=== PATIENT | female | born 1950 | race Caucasian/White ===

== ENCOUNTER → 2023-08-06 12:37 | Outpatient (REF) | payer MEDICARE, OTHER, SELFPAY ==
[2023-08-06 13:24] LABS: % Basophils 0.8 % (0-2); % Eosinophils 1.6 % (0-6); % Immature Granulocytes 0.2 % (0-0.5); % Lymphocytes 27.5 % (20.5-51.1); % Monocytes 8.5 % (1.7-9.3); % Neutrophils 61.4 % (42.2-75.2); Absolute Basophils 0.1 10^3/uL (0-0.2); Absolute Eosinophils 0.1 10^3/uL (0-0.7); Absolute Lymphocytes 1.7 10^3/uL (1.2-3.4); Absolute Monocytes 0.5 10^3/uL (0.1-0.6); Absolute Neutrophils 3.8 10^3/uL (1.4-6.5); Hematocrit 43.5 % (37.0-47.0); Mean Corp Hgb Conc. 36.8 g/dL (33.0-37.0); Mean Corpuscular Volume 100.5 fL (81.0-99.0); Nucleated Red Blood Cells % 0 %; Platelet Count 192 10^3/uL (130-400); Red Blood Cell Count 4.33 10^6/uL (4.20-5.40); Red Cell Dist. Width 11.1 % (11.5-14.5); White Blood Cell Count 6.3 10^3/uL (4.8-10.8)
[2023-08-06 13:50] LABS: ALT (SGPT) 20 U/L (0-35); AST (SGOT) 32 U/L (14-36); Albumin 3.9 g/dl (3.5-5.0); Alkaline Phosphatase 89 U/L (38-126); Blood Urea Nitrogen 15 mg/dl (7-17); Calcium 9.5 mg/dl (8.4-10.2); Carbon Dioxide 26 mmol/L (22-30); Chloride 104 mmol/L (98-107); Glucose 127 mg/dl (70-99); Iron 210 ug/dl (37-170); Sodium 139 mmol/L (135-145); Total Bilirubin 1.1 mg/dl (0.2-1.3); Total Cholesterol 259 mg/dl (50-199); Total Protein 6.2 g/dl (6.3-8.2); Triglyceride 121 mg/dl (10-149); Very Low Density Lipoprotein 24 mg/dl (0-30); eGFR > 60.00
[2023-08-06 13:59] LABS: HDL Cholesterol 120 mg/dl; LDL Cholesterol, Calculated 115 mg/dl; Percent Saturation 97 % (20-50); Total Iron Binding Capacity 216 ug/dl (265-497)
[2023-08-06 14:20] LABS: TSH Reflex To Free T4 0.41 uIU/ml (0.47-4.68)
[2023-08-06 14:48] LABS: Free T4 1.23 ng/dl (0.78-2.19)
[2023-08-06 19:29] LABS: AFP Male/Tumor Marker 3.91 ng/ml
[2023-08-07 11:06] LABS: Glycohemoglobin (HgbA1c) 5.7 % (4.0-5.6)
[2023-08-08 23:57] LABS: CA 27-29 57.5 U/mL (<=39.0)
== END ==
LOC: REG 12:37
PROVIDERS: ATTENDING PHYSICIAN Internal Medicine Hematology; FAMILY PHYSICIAN Family Medicine; OTHER PHYSICIAN Internal Medicine Hematology & Oncology; REFERRING PHYSICIAN Obstetrics & Gynecology
DX: E83.110 Hereditary hemochromatosis (principal); C50.911 Malignant neoplasm of unspecified site of right female breast; C56.2 Malignant neoplasm of left ovary; C50.411 Malignant neoplasm of upper-outer quadrant of right female breast; Z01.812 Encounter for preprocedural laboratory examination; I10 Essential (primary) hypertension; E78.2 Mixed hyperlipidemia; R73.03 Prediabetes
CPT/HCPCS: 36415; 80053; 80061; 82105; 82728; 83036; 83540; 83550; 84439; 84443; 85025; 86300

== ENCOUNTER 2023-08-21 13:53 | Outpatient (RCR) | payer MEDICARE, OTHER, SELFPAY ==
[2023-08-21 14:03] VITALS: BP 140/70
[2023-08-21 14:20] VITALS: BP 142/71
[2023-08-21 14:35] VITALS: BP 138/84
== END 2023-08-24 09:41 | disposition home or self-care (01) ==
LOC: OID 13:53
PROVIDERS: ATTENDING PHYSICIAN Internal Medicine Hematology & Oncology; FAMILY PHYSICIAN Family Medicine
DX: E83.110 Hereditary hemochromatosis (principal)
CPT/HCPCS: 99195

== ENCOUNTER → 2023-09-29 12:28 | Outpatient (REF) | payer MEDICARE, OTHER, SELFPAY | LOC: RAD 12:28 | PROVIDERS: ATTENDING PHYSICIAN Obstetrics & Gynecology | DX: C56.2 Malignant neoplasm of left ovary (principal) | CPT/HCPCS: 71260; 74177; Q9967 ==

== ENCOUNTER → 2023-10-09 12:59 | Outpatient (REF) | payer MEDICARE, OTHER, SELFPAY ==
[2023-10-09 13:56] LABS: % Basophils 0.6 % (0-2); % Immature Granulocytes 0.2 % (0-0.5); % Lymphocytes 32.2 % (20.5-51.1); % Monocytes 8.8 % (1.7-9.3); % Neutrophils 56.2 % (42.2-75.2); Absolute Eosinophils 0.1 10^3/uL (0-0.7); Absolute Lymphocytes 2.1 10^3/uL (1.2-3.4); Absolute Monocytes 0.6 10^3/uL (0.1-0.6); Absolute Neutrophils 3.7 10^3/uL (1.4-6.5); Hematocrit 46.8 % (37.0-47.0); Hemoglobin 16.4 g/dL (12.0-16.0); Mean Corpuscular Hgb 36.2 pg (27.0-31.0); Mean Corpuscular Volume 103.3 fL (81.0-99.0); Mean Platelet Volume 9.1 fL (7.4-10.4); Nucleated Red Blood Cells % 0 %; Platelet Count 226 10^3/uL (130-400); Red Blood Cell Count 4.53 10^6/uL (4.20-5.40); Red Cell Dist. Width 11.9 % (11.5-14.5); White Blood Cell Count 6.6 10^3/uL (4.8-10.8)
[2023-10-09 14:20] LABS: Iron 263 ug/dl (37-170)
[2023-10-09 14:30] LABS: Percent Saturation 128 % (20-50); Total Iron Binding Capacity 204 ug/dl (265-497)
[2023-10-09 14:57] LABS: Ferritin 88.6 ng/ml (11.1-264.0)
== END ==
LOC: REG 12:59
PROVIDERS: ATTENDING PHYSICIAN Internal Medicine Hematology & Oncology; FAMILY PHYSICIAN Family Medicine
DX: E83.110 Hereditary hemochromatosis (principal); C50.411 Malignant neoplasm of upper-outer quadrant of right female breast
CPT/HCPCS: 36415; 82728; 83540; 83550; 85025

== ENCOUNTER 2023-10-15 13:43 | Outpatient (RCR) | payer MEDICARE, OTHER, SELFPAY ==
[2023-10-15 13:55] VITALS: BP 118/69
[2023-10-15 14:35] VITALS: BP 128/71
== END 2023-10-27 23:59 | disposition home or self-care (01) ==
LOC: OID 13:43
PROVIDERS: ATTENDING PHYSICIAN Internal Medicine Hematology & Oncology; FAMILY PHYSICIAN Family Medicine
DX: E83.110 Hereditary hemochromatosis (principal)
CPT/HCPCS: 99195

== ENCOUNTER → 2024-01-29 13:54 | Outpatient (REF) | payer MEDICARE, OTHER, SELFPAY ==
[2024-01-29 14:45] LABS: % Basophils 0.7 % (0-2); % Eosinophils 3.5 % (0-6); % Immature Granulocytes 0.3 % (0-0.5); % Lymphocytes 29.2 % (20.5-51.1); % Monocytes 10.4 % (1.7-9.3); % Neutrophils 55.9 % (42.2-75.2); Absolute Eosinophils 0.2 10^3/uL (0-0.7); Absolute Lymphocytes 1.7 10^3/uL (1.2-3.4); Absolute Monocytes 0.6 10^3/uL (0.1-0.6); Absolute Neutrophils 3.2 10^3/uL (1.4-6.5); Hematocrit 43.5 % (37.0-47.0); Hemoglobin 15.8 g/dL (12.0-16.0); Mean Corp Hgb Conc. 36.3 g/dL (33.0-37.0); Mean Corpuscular Hgb 36.5 pg (27.0-31.0); Mean Corpuscular Volume 100.5 fL (81.0-99.0); Mean Platelet Volume 9.2 fL (7.4-10.4); Nucleated Red Blood Cells % 0 %; Platelet Count 203 10^3/uL (130-400); Red Blood Cell Count 4.33 10^6/uL (4.20-5.40); Red Cell Dist. Width 11.8 % (11.5-14.5); White Blood Cell Count 5.8 10^3/uL (4.8-10.8)
[2024-01-29 15:23] LABS: Iron 143 ug/dl (37-170)
[2024-01-29 15:32] LABS: Percent Saturation 67 % (20-50); Total Iron Binding Capacity 212 ug/dl (265-497)
[2024-01-29 15:58] LABS: AFP Male/Tumor Marker 3.45 ng/ml; Ferritin 46.2 ng/ml (11.1-264.0)
== END ==
LOC: REG 13:54
PROVIDERS: ATTENDING PHYSICIAN Internal Medicine Hematology & Oncology; FAMILY PHYSICIAN Family Medicine
DX: E83.110 Hereditary hemochromatosis (principal); C50.411 Malignant neoplasm of upper-outer quadrant of right female breast
CPT/HCPCS: 36415; 82105; 82728; 83540; 83550; 85025

== ENCOUNTER → 2024-08-04 12:47 | Outpatient (REF) | payer MEDICARE, OTHER, SELFPAY ==
[2024-08-04 14:24] LABS: ALT (SGPT) 25 U/L (0-35); AST (SGOT) 31 U/L (14-36); Albumin 4.4 g/dl (3.5-5.0); Alkaline Phosphatase 98 U/L (38-126); Blood Urea Nitrogen 16 mg/dl (7-17); Calcium 9.3 mg/dl (8.4-10.2); Carbon Dioxide 30 mmol/L (22-30); Chloride 102 mmol/L (98-107); Glucose 90 mg/dl (70-99); Potassium 4.2 mmol/L (3.5-5.1); Sodium 140 mmol/L (135-145); Total Bilirubin 0.9 mg/dl (0.2-1.3); Total Protein 6.6 g/dl (6.3-8.2); eGFR > 60.00
[2024-08-04 14:33] LABS: % Basophils 0.6 % (0-2); % Eosinophils 2.5 % (0-6); % Immature Granulocytes 0.3 % (0-0.5); % Lymphocytes 23.6 % (20.5-51.1); % Monocytes 8.7 % (1.7-9.3); % Neutrophils 64.3 % (42.2-75.2); Absolute Eosinophils 0.2 10^3/uL (0-0.7); Absolute Lymphocytes 1.6 10^3/uL (1.2-3.4); Absolute Monocytes 0.6 10^3/uL (0.1-0.6); Absolute Neutrophils 4.3 10^3/uL (1.4-6.5); Hematocrit 47.3 % (37.0-47.0); Mean Corpuscular Hgb 36.5 pg (27.0-31.0); Mean Corpuscular Volume 101.5 fL (81.0-99.0); Mean Platelet Volume 9.2 fL (7.4-10.4); Nucleated Red Blood Cells % 0 %; Platelet Count 280 10^3/uL (130-400); Red Blood Cell Count 4.66 10^6/uL (4.20-5.40); Red Cell Dist. Width 11.4 % (11.5-14.5); White Blood Cell Count 6.7 10^3/uL (4.8-10.8)
[2024-08-04 14:35] LABS: Mean Corp Hgb Conc. 35.9 g/dL (33.0-37.0)
[2024-08-04 18:55] LABS: CA 125 7.6 U/mL (0-35)
== END ==
LOC: REG 12:47
PROVIDERS: ATTENDING PHYSICIAN Obstetrics & Gynecology Gynecologic Oncology; FAMILY PHYSICIAN Family Medicine
DX: E83.110 Hereditary hemochromatosis (principal); C50.411 Malignant neoplasm of upper-outer quadrant of right female breast; C56.2 Malignant neoplasm of left ovary; C22.1 Intrahepatic bile duct carcinoma
CPT/HCPCS: 36415; 80053; 85025; 86301; 86304

== ENCOUNTER 2024-08-17 13:49 | Outpatient (RCR) | payer MEDICARE, OTHER, SELFPAY ==
[2024-08-17 14:09] VITALS: BP 122/70
[2024-08-17 14:41] VITALS: BP 148/89
[2024-08-17 14:55] VITALS: BP 144/79
== END 2024-08-18 08:34 | disposition home or self-care (01) ==
LOC: OID 13:49
PROVIDERS: ATTENDING PHYSICIAN Internal Medicine Hematology & Oncology
DX: E83.110 Hereditary hemochromatosis (principal); C56.2 Malignant neoplasm of left ovary; Z85.3 Personal history of malignant neoplasm of breast
CPT/HCPCS: 99195

== ENCOUNTER → 2024-09-12 14:25 | Outpatient (REF) | payer MEDICARE, OTHER, SELFPAY ==
[2024-09-12 15:34] LABS: % Basophils 0.6 % (0-2); % Eosinophils 2.4 % (0-6); % Immature Granulocytes 0.3 % (0-0.5); % Lymphocytes 34.6 % (20.5-51.1); % Monocytes 9.4 % (1.7-9.3); % Neutrophils 52.7 % (42.2-75.2); Absolute Eosinophils 0.2 10^3/uL (0-0.7); Absolute Lymphocytes 2.1 10^3/uL (1.2-3.4); Absolute Monocytes 0.6 10^3/uL (0.1-0.6); Absolute Neutrophils 3.2 10^3/uL (1.4-6.5); Hematocrit 44.6 % (37.0-47.0); Hemoglobin 15.9 g/dL (12.0-16.0); Mean Corp Hgb Conc. 35.7 g/dL (33.0-37.0); Mean Corpuscular Hgb 36.6 pg (27.0-31.0); Mean Corpuscular Volume 102.5 fL (81.0-99.0); Mean Platelet Volume 9.4 fL (7.4-10.4); Nucleated Red Blood Cells % 0 %; Platelet Count 205 10^3/uL (130-400); Red Blood Cell Count 4.35 10^6/uL (4.20-5.40); Red Cell Dist. Width 11.9 % (11.5-14.5); White Blood Cell Count 6.2 10^3/uL (4.8-10.8)
[2024-09-12 15:35] LABS: Iron 202 ug/dl (37-170)
[2024-09-12 15:45] LABS: Percent Saturation 90 % (20-50); Total Iron Binding Capacity 223 ug/dl (265-497)
[2024-09-12 16:12] LABS: Ferritin 61.1 ng/ml (11.1-264.0)
== END ==
LOC: REG 14:25
PROVIDERS: ATTENDING PHYSICIAN Internal Medicine Hematology & Oncology
DX: E83.110 Hereditary hemochromatosis (principal); C50.411 Malignant neoplasm of upper-outer quadrant of right female breast; C56.2 Malignant neoplasm of left ovary
CPT/HCPCS: 36415; 82728; 83540; 83550; 85025

== ENCOUNTER → 2024-09-19 13:32 | Outpatient (REF) | payer MEDICARE, OTHER, SELFPAY | LOC: RAD 13:32 | PROVIDERS: ATTENDING PHYSICIAN Obstetrics & Gynecology Gynecologic Oncology; FAMILY PHYSICIAN Family Medicine | DX: C56.2 Malignant neoplasm of left ovary (principal) | CPT/HCPCS: 71260; 74177; Q9967 ==

== ENCOUNTER 2024-09-22 13:45 | Outpatient (RCR) | payer MEDICARE, OTHER, SELFPAY ==
[2024-09-22 13:50] VITALS: BP 161/88
[2024-09-22 14:10] VITALS: BP 122/73
[2024-09-22 14:15] VITALS: BP 100/76
== END 2024-09-26 23:59 | disposition home or self-care (01) ==
LOC: OID 13:45
PROVIDERS: ATTENDING PHYSICIAN Internal Medicine Hematology & Oncology; FAMILY PHYSICIAN Family Medicine
DX: E83.110 Hereditary hemochromatosis (principal); C50.411 Malignant neoplasm of upper-outer quadrant of right female breast; C56.2 Malignant neoplasm of left ovary
CPT/HCPCS: 99195

== ENCOUNTER → 2025-01-30 13:04 | Outpatient (REF) | payer MEDICARE, OTHER, SELFPAY ==
[2025-01-30 13:37] LABS: Hematocrit 43.8 % (37.0-47.0); Hemoglobin 15.4 g/dL (12.0-16.0); Mean Corp Hgb Conc. 35.2 g/dL (33.0-37.0); Mean Corpuscular Volume 102.8 fL (81.0-99.0); Nucleated Red Blood Cells % 0 %; Platelet Count 197 10^3/uL (130-400); Red Cell Dist. Width 12.1 % (11.5-14.5)
[2025-01-30 14:01] LABS: ALT (SGPT) 22 U/L (0-35); AST (SGOT) 28 U/L (14-36); Albumin 4.2 g/dl (3.5-5.0); Alkaline Phosphatase 81 U/L (38-126); Blood Urea Nitrogen 17 mg/dl (7-17); Calcium 9.5 mg/dl (8.4-10.2); Carbon Dioxide 28 mmol/L (22-30); Chloride 107 mmol/L (98-107); Glucose 108 mg/dl (70-99); Iron 159 ug/dl (37-170); Potassium 4.0 mmol/L (3.5-5.1); Sodium 140 mmol/L (135-145); Total Protein 6.4 g/dl (6.3-8.2); eGFR > 60.00
[2025-01-30 14:11] LABS: Total Iron Binding Capacity 226 ug/dl (265-497)
[2025-01-30 14:39] LABS: Ferritin 48.6 ng/ml (11.1-264.0)
[2025-01-30 19:09] LABS: CA 125 < 5.5 U/mL (0-35)
[2025-01-30 19:13] LABS: AFP Male/Tumor Marker 4.22 ng/ml
== END ==
LOC: REG 13:04
PROVIDERS: ATTENDING PHYSICIAN Internal Medicine Hematology & Oncology; FAMILY PHYSICIAN Family Medicine
DX: E83.110 Hereditary hemochromatosis (principal); C50.411 Malignant neoplasm of upper-outer quadrant of right female breast; C56.2 Malignant neoplasm of left ovary
CPT/HCPCS: 36415; 80053; 82105; 82728; 83540; 83550; 85025; 86304